=== PATIENT | male | born 1965 | race Caucasian/White ===

== ENCOUNTER 2016-12-13 17:21 | Emergency (ER) | payer SELFPAY ==
[2016-12-13 17:27] VITALS: PULSE 72
[2016-12-13] MEDS ORDERED: BENZOCAINE UNIT DOSE SPRAY HURRICAINE MM ONE ×2 (17:57→18:08)
[2016-12-13] MEDS ORDERED: LIDOCAINE 2% VISCOUS 15 ML UDCUP ONE (17:57)
--- NOTE | 2016-12-13 18:20 | EDPHY ---
H & P Stated Complaint: SENT BY PCP FOR ? L PERITONSILLAR ABCESS Time Seen by Provider: 12/13/16 17:31 HPI/ROS: Chief Complaint: Throat pain HPI: 51-year-old male with a history of peritonsillar abscess in the past presenting with sore throat particularly on the left which is worsening for the past week. He was seen in the emergency department the PA a week ago and started on clindamycin. Patient has been taking medicine but feels that he is not improving. Was seen by his primary care physician today and told them the emergency department for drainage. Denies any fevers or chills. Some pain with swallowing but is able to swallow. No difficulty breathing. No nausea or vomiting. ROS: 10 point Review of Systems is negative except as noted in the HPI. PMH: Peritonsillar abscess, neuropathy Social History: No smoking, no alcohol, no recreational drug use Family History: non-contributory Physical Exam: General: Awake, alert, no acute distress Mouth: He has got left greater than right peritonsillar swelling, uvula is shifted to the right. Tonsils are not kissing. There is no pointing here for area of fluctuance. There is no airway obstruction. Chest: nontender, lungs clear to auscultation Heart: S1, S2 normal, no murmur Abd: Soft, non-tender, no guarding Back: no CVA tenderness, no midline tenderness Ext: no edema, non-tender Skin: no rash Neuro: CN II-XII intact, Sensation grossly intact, Strength 5/5 in bilateral upper and lower extremities - Personal History Current Tetanus/Diphtheria Vaccine: Yes - Medical/Surgical History Hx Asthma: No Hx Chronic Respiratory Disease: No Hx Diabetes: No Hx Cardiac Disease: No Hx Renal Disease: No Hx Cirrhosis: No Hx Alcoholism: No Hx HIV/AIDS: No Hx Splenectomy or Spleen Trauma: No Other PMH: ?NEUROLOGIC ISSUE - Social History Smoking Status: Never smoked Constitutional: Initial Vital Signs Temperature (C) 37.1 C 12/13/16 17:24 Heart Rate 72 12/13/16 17:24 Respiratory Rate 19 12/13/16 17:24 Blood Pressure 106/80 12/13/16 17:24 O2 Sat (%) 99 12/13/16 17:24 O2 Delivery Mode Room Air Allergies/Adverse Reactions: No Known Allergies Allergy (Unverified 12/13/16 17:24) Home Medications: Medication Instructions Recorded Clindamycin 12/13/16 IBUPROFEN 12/13/16 Medical Decision Making Procedures: Procedure: Peritonsillar Abscess drainage. The patient's abscess was located on the left peritonsillar region. I obtained verbal consent from the patient to drain the abscess who was informed about the possibility of bleeding and pain. Patient was anesthetized with Hurricaine spray and 4% topical lidocaine jelly. The abscess was incised with 18 gauge spinal needle on a control syringe and a small amount of purulent drainage was expressed. Approximately 5-6 punctures were made in different locations to ensure that any pockets of abscess were reached. The patient tolerated the procedure well. The procedure was performed by myself. Departure - Departure Disposition: Home, Routine, Self-Care Clinical Impression: Peritonsillar abscess Condition: Good Instructions: Peritonsillar Abscess (ED) Additional Instructions: Follow up with Ear Nose and Throat doctor in 2-3 days for re-evaluation. Please make sure to complete your full course of antibiotics. Return to the emergency department for increasing pain, difficulty swallowing. Fevers, chills, or any other concerns. Referrals: TYESHA SUTTON [Other] - As per Instructions Yael Maldonado MD [Medical Doctor] - As per Instructions
[2016-12-13 18:35] VITALS: BP 120/84; RESP 16; TEMP 97.7; O2SAT 98
== END 2016-12-13 18:29 | disposition home or self-care (01) ==
PROC: 0C9PXZZ Drainage of Tonsils, External Approach (ICD-10-PCS; principal; 2016-12-13)
DX: J36 Peritonsillar abscess (principal)